=== PATIENT | male | born 1935 | race Caucasian/White ===

== ENCOUNTER 2018-02-11 13:31 | Observation (INO) ==
[2018-02-11] MEDS ORDERED: methylPREDNISolone 125 MG/2 ML VIAL IVP ONE (13:45)
[2018-02-11] MEDS ORDERED: Ipratropium/Albuterol Neb 3 ML IH ONE (13:45)
--- NOTE | 2018-02-11 14:00 | Emergency Department Note ---
Disposition Clinical Impression: Acute exacerbation of chronic obstructive airways disease Disposition: Admitted As Inpatient Forms: ED Satisfaction Letter Time of Disposition: 15:58 SOB HPI - General Chief Complaint: ED Shortness of Breath/Dyspnea Stated Complaint: TOM Cough Time Seen by Provider: 02/11/18 13:43 Source: patient, family Limitations: no limitations Nursing Notes Reviewed: Yes Vital Signs Reviewed: Yes - History of Present Illness Patient is an 82-year-old male who presents to [facility] ED with a chief complaint of difficulty breathing. States his symptoms have worsened over the last 2-3 days. He has a history of COPD. Does have albuterol nebulizers at home which she used up until yesterday evening. He then had somewhat trouble getting around he just sat around. Denies any nausea , vomiting, fever or chills. No chest pain, abdominal pain, problems with urination or bowel movements. Patient is a former smoker and quit approximately 14 years ago. Patient has a history of multiple stents and the heart as well as a pacemaker. Pt Subjective Complaint: shortness of breath Onset (ago): day(s) (3) Severity: moderate Consistency/Duration: gradually worsening Improves with: rest Worsens with: exertion Known history of: COPD Associated symptoms: Reports: cough, wheezing. Denies: chest pain, fever, nausea/vomiting, abdominal pain Treatment prior to arrival: none Cough present: Yes Cough Description: Involuntary Cough Frequency: Intermittent Sputum production: No - Related Data Allergies Allergy/AdvReac Type Severity Reaction Status Date / Time levofloxacin [From Levaquin] Allergy Hives Verified 02/11/18 14:13 pravastatin [From Pravachol] Allergy Hives Verified 02/11/18 14:13 All systems ED: reviewed and negative except as stated. Past Medical History - Past Medical History Attestation: Yes The following information was validated with the patient. Source: patient Medical history: Reports: CHF, COPD, dementia, hypertension Psychiatric history: Reports: no psych history - Social History Smoking Status: Former smoker Alcohol use: Reports: none Drug use: Reports: none Physical Exam - General Limitations: no limitations General appearance: alert - Head Head exam: atraumatic, normocephalic, normal inspection - Eye Eye exam: Present: normal appearance, EOMI - ENT ENT exam: normal exam, normal oropharynx, mucous membranes moist - Neck Neck exam: Present: normal inspection, full ROM, trachea midline - Chest Chest inspection: Present: normal inspection, symmetric chest wall rise - Respiratory Respiratory exam: Present: wheezes (diffuse) - Cardiovascular Cardiovascular exam: Present: regular rate, normal rhythm, normal heart sounds - Abdominal Exam Abdominal exam: Present: soft, Non-Tender. Absent: tenderness, distention, guarding, rebound, rigidity - Extremities Exam Extremities exam: Present: full ROM, pedal edema (2+). Absent: tenderness - Neurological Exam Neurological exam: Present: alert, oriented X3 - Psychiatric Psychiatric exam: Present: normal affect, normal mood - Skin Skin exam: Present: warm, dry, intact, normal color Course Course Narrative: Patient seen and examined. Difficulty breathing over the last several days. Upon examination, has diffuse wheezing bilaterally. Triple DuoNeb, Solu-Medrol ordered. Cardiopulmonary workup initiated. - Reevaluation(s) Reevaluation #1: Labwork shows elevated BNP greater than 400. Chest x-ray does not show signs of pulmonary edema. Upon reexamination, patient still has diffuse tight wheezes route his lungs with a respiratory rate of approximately 25 times per minute. We will admit for COPD exacerbation. I discussed with the hospitalist who has accepted patient for admission. Time: 15:57 Vital Signs Temperature 97.4 F L 02/11/18 13:37 Pulse Rate 81 02/11/18 13:37 Respiratory Rate 16 02/11/18 13:37 Blood Pressure 124/83 02/11/18 13:37 O2 Sat by Pulse Oximetry 93 02/11/18 13:37 Temperature 97.4 F L 02/11/18 13:37 Pulse Rate 80 02/11/18 16:15 Respiratory Rate 18 02/11/18 16:15 Blood Pressure 117/74 02/11/18 16:15 O2 Sat by Pulse Oximetry 97 02/11/18 16:15 Oxygen Delivery Oxygen Delivery Nasal Cannula Shortness of Breath/Dyspnea - Medical Records Medical records reviewed: Yes I reviewed the patient's medical records. - Lab Data Lab results reviewed: Yes I reviewed the patient's lab results. Result diagrams: 02/11/18 14:04 02/11/18 14:04 Lab Results 02/11/18 02/11/18 02/11/18 Range/Units 14:04 14:04 14:04 WBC 7.4 (4.3-11.1) K/mcL RBC 4.06 L (4.19-5.50) M/mcL Hgb 13.9 (12.9-16.9) g/dL Hct 41.3 (37.5-50.1) % MCV 101.7 H (83.0-100.0) fL MCH 34.2 H (28.0-33.3) pg MCHC 33.7 (31.6-35.5) g/dL RDW 13.6 (11.5-14.5) % Plt Count 115 L (140-400) K/mcL MPV 10.6 (9.4-12.4) fL Immature Gran % 0.4 (0-4) % Seg Neutrophils % 69.6 % Lymphocytes % 16.4 % Monocytes % 11.2 % Eosinophils % 1.7 % Basophils % 0.7 % Neutrophils # 5.2 (1.6-8.9) K/mcL Lymphocytes # 1.2 (0.6-4.6) K/mcL Monocytes # 0.8 (0.0-1.3) K/mcL Eosinophils # 0.1 (0.0-0.6) K/mcL Basophils # 0.1 (0.0-0.2) K/mcL Sodium 137 (136-145) mEq/L Potassium 4.2 (3.5-5.1) mEq/L Chloride 98 (98-107) mEq/L Carbon Dioxide 33 H (23-29) mEq/L BUN 27 H (8-23) mg/dL Creatinine 1.08 (0.70-1.30) mg/dL Est GFR ( Amer) > 60 (> 60) Est GFR (Non-Af Amer) > 60 (> 60) BUN/Creatinine Ratio 25 (6-26) Glucose 95 (70-105) mg/dL Calculated Osmolality 289 (280-300) Lactic Acid 1.4 (0.5-2.2) mmol/L Calcium 9.9 (8.6-10.3) mg/dL Troponin I < 0.03 (< 0.04) ng/mL B-Natriuretic Peptide (Less than 100) pg/mL 02/11/18 Range/Units 14:04 WBC (4.3-11.1) K/mcL RBC (4.19-5.50) M/mcL Hgb (12.9-16.9) g/dL Hct (37.5-50.1) % MCV (83.0-100.0) fL MCH (28.0-33.3) pg MCHC (31.6-35.5) g/dL RDW (11.5-14.5) % Plt Count (140-400) K/mcL MPV (9.4-12.4) fL Immature Gran % (0-4) % Seg Neutrophils % % Lymphocytes % % Monocytes % % Eosinophils % % Basophils % % Neutrophils # (1.6-8.9) K/mcL Lymphocytes # (0.6-4.6) K/mcL Monocytes # (0.0-1.3) K/mcL Eosinophils # (0.0-0.6) K/mcL Basophils # (0.0-0.2) K/mcL Sodium (136-145) mEq/L Potassium (3.5-5.1) mEq/L Chloride (98-107) mEq/L Carbon Dioxide (23-29) mEq/L BUN (8-23) mg/dL Creatinine (0.70-1.30) mg/dL Est GFR ( Amer) (> 60) Est GFR (Non-Af Amer) (> 60) BUN/Creatinine Ratio (6-26) Glucose (70-105) mg/dL Calculated Osmolality (280-300) Lactic Acid (0.5-2.2) mmol/L Calcium (8.6-10.3) mg/dL Troponin I (< 0.04) ng/mL B-Natriuretic Peptide 477 H (Less than 100) pg/mL - Radiology Data Radiology results reviewed: Yes I reviewed the patient's radiology results. Chest X-Ray 02/11/18 13:46 IMPRESSION: Low lung volume study without acute process. D/ / Carmela Gamez MD / Carmela Gamez MD Interpreting Provider: Carmela Gamez MD - EKG Data EKG attestation: Yes I reviewed and interpreted this EKG. EKG results narrative: EKG done at 1336 shows electronic ventricular paced rhythm with a rate of [address] elevation or depression. Inverted T waves in lead aVL and aVR. Attestation Statement - Attestation Attestation: I, Jabari Spence, examined this patient and my medical decision-making was reviewed with the INFORMATION CODER/PA/Advanced Practice Nurse/Resident Physician. I agree with the documented findings, disposition and treatment plan as described except to the extent set forth below. 82-year-old male presents emergency Department with concerns of increased difficulty in breathing. This is no worsening over the past 4-5 days. This similar to the previous COPD exacerbations per the daughter who is in the room. Patient is unable to give a good history regarding his case and presentation as he has a history of dementia. Patient had wheezing present on bilateral posterior lung emerson. He was given a breathing treatment emergency department daughter states he had woken up and was able to speak with her. Patient will be admitted to the hospitalist for further care and evaluation.
[2018-02-11 14:22] LABS: Basophils # 0.1 K/mcL (0.0-0.2); Basophils % 0.7 %; Eosinophils # 0.1 K/mcL (0.0-0.6); Eosinophils % 1.7 %; Hematocrit 41.3 % (37.5-50.1); Hemoglobin 13.9 g/dL (12.9-16.9); Immature Granulocytes % 0.4 % (0-4); Lymphocytes # 1.2 K/mcL (0.6-4.6); Lymphocytes % 16.4 %; Mean Corpuscular HGB Conc 33.7 g/dL (31.6-35.5); Mean Corpuscular Hemoglobin 34.2 pg (28.0-33.3); Mean Corpuscular Volume 101.7 fL (83.0-100.0); Mean Platelet Volume 10.6 fL (9.4-12.4); Monocytes # 0.8 K/mcL (0.0-1.3); Monocytes % 11.2 %; Neutrophils # 5.2 K/mcL (1.6-8.9); Platelet Count 115 K/mcL (140-400); Red Blood Count 4.06 M/mcL (4.19-5.50); Red Cell Distribution Width 13.6 % (11.5-14.5); Segmented Neutrophils % 69.6 %
[2018-02-11 14:34] LABS: Troponin I < 0.03 ng/mL (< 0.04)
[2018-02-11 14:43] LABS: BUN/Creatinine Ratio 25 (6-26); Blood Urea Nitrogen 27 mg/dL (8-23); Calcium 9.9 mg/dL (8.6-10.3); Carbon Dioxide 33 mEq/L (23-29); Chloride 98 mEq/L (98-107); Glucose 95 mg/dL (70-105); Osmolality,Calculated 289 (280-300); Potassium 4.2 mEq/L (3.5-5.1); Sodium 137 mEq/L (136-145); eGFR For African Americans > 60 (> 60); eGFR For Non-African Americans > 60 (> 60)
[2018-02-11] MEDS ORDERED: *HR* Promethazine 25 MG/ML VIAL IVP PRN (15:42)
[2018-02-11] MEDS ORDERED: Acetaminophen 325 MG TABLET PO PRN (15:42)
[2018-02-11] MEDS ORDERED: Naloxone 0.4 MG/ML INJ IVP PRN (15:42)
[2018-02-11] MEDS: Ipratropium/Albuterol Neb 3 ML IH SCH ×3 (16:23→23:05)
--- NOTE | 2018-02-11 17:39 | Internal Med History&Physical ---
Date of Encounter: 02/11/18 Time of Encounter: 16:40 Internal Medicine - H&P: HPI Chief complaint: Shortness of breath Admitted From: Emergency Dept Plans for Post Hospital Care: Home History of present illness: Mr. Mccodr is a 82 year old male with known PMH of Anxiety, Dementia, HTN, BPH, CHF, CAD and COPD, chronic hypoxic resp failure on 2 lit home O2 was brought into ER by family stating that he has been having worsening SOB, cough with greenish expectoration since last 2 days. He denied any CP. Denied any sick contacts at home. He does required 3 lit O2 now. He also have b/l LE edema , which seems to be chronic for him as per family. Past Med Surg Social Fam HX - Past Medical History Medical history: CHF, COPD, dementia, hypertension Psychiatric history: no psych history - Social History Smoking Status: Former smoker Alcohol use: none Drug use: none - Additional Family History Additional family history: Family hsitory reviewed and non contribuitory to current problem. Internal Medicine - H&P: Meds Albuterol Neb [Proventil Neb] 2.5 mg IH Q4HR PRN 02/11/18 [History] Aspirin [Lo-Dose Aspirin EC] 81 mg PO DAILY 02/11/18 [History] Cephalexin [Keflex] 500 mg PO TID 02/11/18 [History] Clopidogrel [Plavix] 75 mg PO DAILY 02/11/18 [History] Donepezil HCl [Aricept] 10 mg PO DAILY 02/11/18 [History] Fluticasone/Salmeterol [Advair 250-50 Diskus] 1 puff IH BID 02/11/18 [History] Furosemide [Lasix] 40 mg PO DAILY 02/11/18 [History] LORazepam [Ativan] 1 mg PO BID 02/11/18 [History] Metoprolol [Lopressor] 25 mg PO BID 02/11/18 [History] Nitroglycerin [Nitrostat] 0.4 mg SL Q5M PRN 02/11/18 [History] Ranitidine HCl [Acid Panel Machine Tender] 150 mg PO DAILY 02/11/18 [History] Tamsulosin HCl [Flomax] 0.4 mg PO DAILY 02/11/18 [History] Thiamine HCl [Vitamin B-1] 100 mg PO DAILY 02/11/18 [History] Tramadol HCl [Ultram] 50 mg PO QID PRN 02/11/18 [History] 3 Allergy/AdvReac Type Severity Reaction Status Date / Time levofloxacin [From Levaquin] Allergy Hives Verified 02/11/18 14:13 pravastatin [From Pravachol] Allergy Hives Verified 02/11/18 14:13 All Systems PM: A 10-system review of systems was performed and is negative for pertinent findings except as documented above in the HPI. Review of systems: All the systems are reviewed everything is benign except the systems and symptoms I mentioned in the history of present illness - Constitutional Vitals: Temp Pulse Resp BP Pulse Ox 98.2 F 90 15 130/76 93 02/11/18 17:25 02/11/18 17:25 02/11/18 17:25 02/11/18 17:25 02/11/18 17:25 General appearance: Present: A&O X 3, no acute distress, answers questions appropriately Exam: Looks weak and lethargic - Head Head exam: Present: atraumatic, normal inspection - Neck Neck exam general surgery: Present: supple - Respiratory Respiratory exam: Present: decreased breath sounds, rales, rhonchi, wheezes ( moderate to severe). Absent: respiratory distress - Cardiovascular Cardiovascular exam: Present: RRR, +S1, +S2. Absent: tachycardia - GI/Abdominal GI/Abdominal exam: Present: normal bowel sounds, soft. Absent: rebound, rigid, tenderness - Extremities Exam Extremities exam: Present: pedal edema (1-2+). Absent: calf tenderness, tenderness - Back Exam Back exam: Absent: CVA tenderness (L), CVA tenderness (R) - Neurological Exam Neurological exam: Present: alert, oriented X3 - Psychiatric Psychiatric exam: Present: depressed Internal Med - H&P Results - Labs CBC & Chem 7: 02/11/18 14:04 02/11/18 14:04 - Assessment and plan (1) Acute and chronic respiratory failure with hypoxia Current Visit: Yes Status: Acute Assessment and plan: Admit the pt into Tele Started him on Duoneb Q 4hr REESE Cont O2.. titrate O2 as he requires Cont high dose IV steroids Solumedrol 40mg Q6hr empirical abx Rocephin and Azithromycin (2) Acute bronchitis Current Visit: Yes Status: Acute Assessment and plan: Purulent bronchitis Reviewed CXr - no consolidations noticed will check Sputum cx, strep PNA, Legionella and Resp viral panel cont empirical abx Rocephin + Azithromycin Qualifiers: Qualified Code(s): J20.9 - Acute bronchitis, unspecified (3) Acute exacerbation of chronic obstructive airways disease Current Visit: Yes Status: Acute (4) CHF (congestive heart failure) Current Visit: Yes Status: Acute Assessment and plan: He might be in mild CHF exacerbation however he looks dehydrated / inta vascular volume depleted too so will hold on Lasix for now will get 2 D Echo resumed other home meds Qualifiers: Heart failure type: unspecified Heart failure chronicity: acute on chronic Qualified Code(s): I50.9 - Heart failure, unspecified (5) Bilateral leg edema Current Visit: Yes Status: Acute (6) Physical deconditioning Current Visit: Yes Status: Acute Assessment and plan: PT / OT eval in AM (7) HTN (hypertension) Current Visit: Yes Status: Acute Assessment and plan: resumed home meds Qualifiers: Hypertension type: essential hypertension Qualified Code(s): I10 - Essential (primary) hypertension - Time Spent With Patient Total time spent is greater than 50% in coordination of care (as documented) at patient's floor/unit and/or counseling patient:
[2018-02-11] MEDS ORDERED: Nitroglycerin 0.4 MG TAB.SUBL SL PRN (17:43)
[2018-02-11] MEDS: MethylPREDNISolone 40 MG/ML VIAL IVP SCH ×2 (18:16→23:06)
[2018-02-11] MEDS: Azithromycin 500 MG in D5% in Water 250 ML IVPB SCH (18:16)
[2018-02-11] MEDS: cefTRIAXone 1,000 MG in Water for inj. (sterile) 20 ML 10 ML IVP SCH (18:18)
[2018-02-11] MEDS: Budesonide/Formoterol 80/4.5 MDI IH SCH (19:36)
[2018-02-11 20:12] LABS: Adenovirus Not Detected (Not Detect); Bordetella Pertussis Not Detected (Not Detect); Chlamydophila pneumoniae Not Detected (Not Detect); Coronavirus 229E Not Detected (Not Detect); Coronavirus HKU1 Not Detected (Not Detect); Coronavirus NL63 Not Detected (Not Detect); Coronavirus OC43 Not Detected (Not Detect); Human Metapneumovirus Not Detected (Not Detect); Human Rhinovirus/Enterovirus ***DETECTED*** (Not Detect); Influenza A Subtype 2009 H1 Not Detected (Not Detect); Influenza A Untypeable Not Detected (Not Detect); Influenza B Not Detected (Not Detect); Mycoplasma pneumoniae Not Detected (Not Detect); Parainfluenza Virus 1 Not Detected (Not Detect); Parainfluenza Virus 2 Not Detected (Not Detect); Parainfluenza Virus 3 Not Detected (Not Detect); Parainfluenza Virus 4 Not Detected (Not Detect); Respiratory Syncytial Virus Not Detected (Not Detect)
[2018-02-12] MEDS: Ipratropium/Albuterol Neb 3 ML IH SCH ×5 (04:21→19:26)
[2018-02-12] MEDS: *HR* Enoxaparin 40 MG/0.4 ML SYRINGE SQ SCH (05:24)
[2018-02-12] MEDS: MethylPREDNISolone 40 MG/ML VIAL IVP SCH ×3 (05:24→17:19)
[2018-02-12 07:20] LABS: Hematocrit 36.4 % (37.5-50.1); Hemoglobin 12.5 g/dL (12.9-16.9); Immature Granulocytes % 0.3 % (0-4); Lymphocytes # 0.8 K/mcL (0.6-4.6); Lymphocytes % 13.9 %; Mean Corpuscular HGB Conc 34.3 g/dL (31.6-35.5); Mean Corpuscular Hemoglobin 33.8 pg (28.0-33.3); Mean Corpuscular Volume 98.4 fL (83.0-100.0); Mean Platelet Volume 10.5 fL (9.4-12.4); Monocytes # 0.3 K/mcL (0.0-1.3); Monocytes % 4.5 %; Neutrophils # 4.7 K/mcL (1.6-8.9); Platelet Count 108 K/mcL (140-400); Red Cell Distribution Width 13.5 % (11.5-14.5); Segmented Neutrophils % 81.3 %
[2018-02-12] MEDS: Budesonide/Formoterol 80/4.5 MDI IH SCH ×2 (07:37→19:26)
[2018-02-12 07:41] LABS: BUN/Creatinine Ratio 35 (6-26); Blood Urea Nitrogen 32 mg/dL (8-23); Calcium 9.4 mg/dL (8.6-10.3); Carbon Dioxide 33 mEq/L (23-29); Chloride 99 mEq/L (98-107); Glucose 145 mg/dL (70-105); Osmolality,Calculated 295 (280-300); Potassium 3.5 mEq/L (3.5-5.1); Sodium 138 mEq/L (136-145); eGFR For African Americans > 60 (> 60); eGFR For Non-African Americans > 60 (> 60)
[2018-02-12] MEDS: Thiamine (B-1) 100 MG TABLET PO SCH (08:03)
[2018-02-12] MEDS: Famotidine 20 MG TABLET PO SCH (08:03)
[2018-02-12] MEDS: cefTRIAXone 1,000 MG in Water for inj. (sterile) 20 ML 10 ML IVP SCH (08:03)
[2018-02-12] MEDS: Aspirin Enteric Coated 81 MG Tablet PO SCH (08:03)
[2018-02-12] MEDS ORDERED: Furosemide 40 MG TABLET PO SCH (09:00)
[2018-02-12] MEDS: Azithromycin 500 MG in D5% in Water 250 ML IVPB SCH (16:13)
--- NOTE | 2018-02-12 19:11 | Internal Med Progress Note ---
Date of Encounter: 02/12/18 Time of Encounter: 19:10 - Assessment and plan (1) Acute and chronic respiratory failure with hypoxia Current Visit: Yes Status: Acute Assessment and plan: Likely due to CHF. Echo abnormal. Will consult cardiology to see. Will continue with Lasix but switch to IV for now as pt is still on oxygen nasal canula. (2) Acute bronchitis Current Visit: Yes Status: Acute Assessment and plan: On Zithromax Qualifiers: Qualified Code(s): J20.9 - Acute bronchitis, unspecified (3) Bilateral leg edema Current Visit: Yes Status: Acute Assessment and plan: will recheck in am. (4) CHF (congestive heart failure) Current Visit: Yes Status: Acute Assessment and plan: Will give trail of Lasix IV for now and consult cardiology. Qualifiers: Heart failure type: unspecified Heart failure chronicity: acute on chronic Qualified Code(s): I50.9 - Heart failure, unspecified (5) HTN (hypertension) Current Visit: Yes Status: Acute Assessment and plan: On Lopressor. Qualifiers: Hypertension type: essential hypertension Qualified Code(s): I10 - Essential (primary) hypertension - Time Spent With Patient Total time spent is greater than 50% in coordination of care (as documented) at patient's floor/unit and/or counseling patient: - Subjective Interval history: Pt denies ever smoking. Denies being on home oxygen. Pt's echo was reportedly abnormal. Cardiology will be consulted to see. - Constitutional Vitals: Temp Pulse Resp BP Pulse Ox 97.9 F 80 18 122/75 94 02/12/18 15:25 02/12/18 15:25 02/12/18 15:44 02/12/18 15:25 02/12/18 15:44 General appearance: Present: A&O X 3, no acute distress, answers questions appropriately - Head Head exam: Present: atraumatic, normocephalic - Eye Eye exam: Present: PERRL, conjuntiva pink, sclera anicteric Pupils: Present: PERRL - Neck Neck exam general surgery: Present: supple, trachea midline. Absent: lymphadenopathy - Respiratory Respiratory exam: Present: decreased breath sounds, CTAB. Absent: accessory muscle use, rales, rhonchi, wheezes - Cardiovascular Cardiovascular exam: Present: RRR, +S1, +S2. Absent: diastolic murmur, gallop, rubs, systolic murmur - GI/Abdominal GI/Abdominal exam: Present: normal bowel sounds, soft, no peritoneal signs. Absent: distended, tenderness - Extremities Exam Extremities exam: Present: warm, radial pulses palpable and symmetrical. Absent : calf tenderness, cyanotic, pedal edema - Neurological Exam Neurological exam: Present: CN II-XII intact, oriented X3, no focal deficits. Absent: pronater drift, facial droop, speech deficit - Skin Skin exam: Present: dry, intact Internal Medicine: Result - Labs CBC & Chem 7: 02/12/18 05:55 02/12/18 05:55 Labs: Short CBC 02/12/18 Range/Units 05:55 WBC 5.7 (4.3-11.1) K/mcL Hgb 12.5 L (12.9-16.9) g/dL Hct 36.4 L (37.5-50.1) % Plt Count 108 L (140-400) K/mcL Neutrophils # 4.7 (1.6-8.9) K/mcL BMP 02/12/18 05:55 Sodium 138 Potassium 3.5 Chloride 99 Carbon Dioxide 33 H BUN 32 H Creatinine 0.91 Glucose 145 H Calcium 9.4 - Impressions Impressions Echocardiogram 02/12/18 17:48 Impressions: LVEF 40%. Mild to moderate LV systolic dysfunction. Indeterminate diastolic function. Mild concentric left ventricular hypertrophy. Normal right ventricular structure and function. Severe bi-atrial enlargement. Mild-moderate mitral regurgitation. Densely calcified aortic valve leaflets with low gradient severe aortic stenosis. Moderate, eccentric aortic regurgitation may be underestimated. Mild-moderate tricuspid regurgitation. Mild-moderate pulmonic regurgitation. Moderate pulmonary hypertension. A device lead was visualized in the right atrium and right ventricle. No prior echo for comparison. Ordering provider notified. Left Ventricular Wall Motion: Rest Echo Findings The apex, apical inferior, mid inferior, basal inferior, apical anterior, mid anterior, basal anterior, apical septal, mid inferior septal, basal inferior septal, apical lateral, mid anterior lateral, basal anterior lateral, mid anterior septal, mid inferior lateral, basal anterior septal and basal inferior lateral lopez were hypokinetic. Findings: Study Quality * Technically adequate exam. ECG Findings * Paced rhythm. Left Ventricle * LVEF 40%. * Indeterminate diastolic function. * Mild concentric left ventricular hypertrophy. Right Ventricle * Normal right ventricular structure and function. Left Atrium * Severely dilated left atrium. Right Atrium * Severely dilated right atrium. Mitral Valve * No mitral stenosis. * Mildly thickened mitral valve leaflets. * Mild-moderate mitral regurgitation. Aortic Valve * Aortic valve leaflet morphology not well visualized. * Densely calcified aortic valve leaflets. * Moderate, eccentric aortic regurgitation may be underestimated. * Severe aortic stenosis. PV 3.8m/s, MG 33 mmHg, DI 0.13, ADOLFO 0.56 cm2. Reduced SVI 25mL/m2 Tricuspid Valve * Normal tricuspid valve structure. * Mild-moderate tricuspid regurgitation. * Estimated RA pressure is 20 mmHg. * Estimated RVSP is 52 mmHg. * Moderate pulmonary hypertension. Pulmonic Valve * No pulmonic stenosis. * Normal pulmonic valve structure. * Mild-moderate pulmonic regurgitation. Pulmonary Artery * Normal visualized portions of the main pulmonary artery. Aorta * Not well visualized. Pericardium * There is no pericardial effusion present. Device lead * A device lead was visualized in the right atrium and right ventricle. Interatrial Septum * No evidence of PFO by color Doppler. IVC * The IVC is dilated. * < 50% respiratory change. - Diagnostic Studies Other Images Additional comments: echo 02/12/2018 Impressions: LVEF 40%. Mild to moderate LV systolic dysfunction. Indeterminate diastolic function. Mild concentric left ventricular hypertrophy. Normal right ventricular structure and function. Severe bi-atrial enlargement. Mild-moderate mitral regurgitation. Densely calcified aortic valve leaflets with low gradient severe aortic stenosis. Moderate, eccentric aortic regurgitation may be underestimated. Mild-moderate tricuspid regurgitation. Mild-moderate pulmonic regurgitation. Moderate pulmonary hypertension. A device lead was visualized in the right atrium and right ventricle. No prior echo for comparison. Ordering provider notified. Consult Discharge Plan - Plan Referrals: Lito Loving DO [Primary Care Provider] -
[2018-02-12] MEDS ORDERED: Furosemide 40 MG/4 ML VIAL IVP SCH (19:30)
[2018-02-12] MEDS: *HR* LORazepam 1 MG TABLET PO PRN (22:17)
[2018-02-13] MEDS: Ipratropium/Albuterol Neb 3 ML IH SCH ×6 (00:13→20:01)
[2018-02-13] MEDS: MethylPREDNISolone 40 MG/ML VIAL IVP SCH ×5 (00:14→23:36)
[2018-02-13] MEDS ORDERED: *HR* LORazepam 1 MG TABLET PO ONE (01:58)
[2018-02-13] MEDS: *HR* Enoxaparin 40 MG/0.4 ML SYRINGE SQ SCH (06:12)
--- NOTE | 2018-02-13 08:30 | Electrocardiograph Report ---
[place] [employer] Test Date: 2018-02-11 Pat Name: Asa Mccord Department: 103 Room: 3B45 Gender: M Hand Etcher: ANNMARIE : 1935 Requested By: Tanja Tilley Order Number: [id number] Reading MD: Alonso Holman Measurements Intervals [place] Rate: 79 P: DC: 0 QRS: 265 QRSD: 197 T: 81 QT: 428 QTc: 462 Interpretive Statements ELECTRONIC VENTRICULAR PACEMAKER ABNORMAL RHYTHM ECG INTERPRETATION BASED ON A DEFAULT AGE OF 40 YEARS Electronically Signed On 02-13-2018 8:28:47 EDT by Alonso Holman
[2018-02-13] MEDS: cefTRIAXone 1,000 MG in Water for inj. (sterile) 20 ML 10 ML IVP SCH (09:29)
[2018-02-13] MEDS: Aspirin Enteric Coated 81 MG Tablet PO SCH (09:30)
[2018-02-13] MEDS: Thiamine (B-1) 100 MG TABLET PO SCH (09:30)
[2018-02-13] MEDS: *HR* HYDROcodone/Acet 5/325 mg TABLET PO PRN (09:30)
[2018-02-13] MEDS: Famotidine 20 MG TABLET PO SCH (09:30)
[2018-02-13] MEDS: Furosemide 40 MG TABLET PO SCH (09:30)
--- NOTE | 2018-02-13 10:31 | Internal Med Progress Note ---
Date of Encounter: 02/13/18 Time of Encounter: 10:30 - Assessment and plan (1) Severe aortic stenosis Current Visit: Yes Status: Acute Assessment and plan: Per cardiology TTE demonstrates evidence of a cardiomyopathy, LVEF 40%. Echo also showing evidence of severe aortic stenosis. These findings may certainly be contributing to patient's symptoms of shortness of breath. Results discussed with the pt. Cardiology believes he may be a candidate for TAVR. Cardiology attempted to reach pt's but was unable to reach her. Neighbor who was at [facility] this am states pt's was admitted to a hospital in [place]. Cardiology recommends continue medical therapy for now, including aspirin, beta apple. Add statin, low-dose BILLY inhibitor therapy. (2) Acute bronchitis Current Visit: Yes Status: Acute Qualifiers: Qualified Code(s): J20.9 - Acute bronchitis, unspecified (3) Bilateral leg edema Current Visit: Yes Status: Acute (4) HTN (hypertension) Current Visit: Yes Status: Acute Qualifiers: Hypertension type: essential hypertension Qualified Code(s): I10 - Essential (primary) hypertension (5) Cardiomyopathy Current Visit: Yes Status: Acute Assessment and plan: Pt will continue home dose diuretic but with close monitoring due to underlying severe aortic stenosis. Statin and low dose BILLY inhibitor added by cardiology . Qualifiers: Cardiomyopathy type: unspecified Qualified Code(s): I42.9 - Cardiomyopathy , unspecified - Time Spent With Patient Total time spent is greater than 50% in coordination of care (as documented) at patient's floor/unit and/or counseling patient: less than 15 minutes - Subjective Interval history: Pt admits to using home oxygen at 21/2 L NC. Pt's echo was reportedly abnormal. Cardiology will be consulted to see. - Constitutional Vitals: Temp Pulse Resp BP Pulse Ox 97.7 F 79 16 153/87 92 02/13/18 07:18 02/13/18 07:18 02/13/18 07:18 02/13/18 07:18 02/13/18 09:15 General appearance: Present: A&O X 3, no acute distress, answers questions appropriately Exam: thin - Head Head exam: Present: atraumatic, normocephalic - Eye Eye exam: Present: PERRL, conjuntiva pink, sclera anicteric Pupils: Present: PERRL - Neck Neck exam general surgery: Present: supple, trachea midline. Absent: lymphadenopathy - Respiratory Respiratory exam: Present: CTAB. Absent: accessory muscle use, rales, rhonchi, wheezes - Cardiovascular Cardiovascular exam: Present: RRR, +S1, +S2. Absent: diastolic murmur, gallop, rubs, systolic murmur Additional comments: distant heart sounds - GI/Abdominal GI/Abdominal exam: Present: normal bowel sounds, soft, no peritoneal signs. Absent: distended, tenderness - Extremities Exam Extremities exam: Present: warm, radial pulses palpable and symmetrical. Absent : calf tenderness, cyanotic, pedal edema - Neurological Exam Neurological exam: Present: CN II-XII intact, oriented X3, no focal deficits. Absent: pronater drift, facial droop, speech deficit - Skin Skin exam: Present: dry, intact Internal Medicine: Result - Labs CBC & Chem 7: 02/12/18 05:55 02/12/18 05:55 - Impressions Impressions Echocardiogram 02/12/18 17:48 Impressions: LVEF 40%. Mild to moderate LV systolic dysfunction. Indeterminate diastolic function. Mild concentric left ventricular hypertrophy. Normal right ventricular structure and function. Severe bi-atrial enlargement. Mild-moderate mitral regurgitation. Densely calcified aortic valve leaflets with low gradient severe aortic stenosis. Moderate, eccentric aortic regurgitation may be underestimated. Mild-moderate tricuspid regurgitation. Mild-moderate pulmonic regurgitation. Moderate pulmonary hypertension. A device lead was visualized in the right atrium and right ventricle. No prior echo for comparison. Ordering provider notified. Left Ventricular Wall Motion: Rest Echo Findings The apex, apical inferior, mid inferior, basal inferior, apical anterior, mid anterior, basal anterior, apical septal, mid inferior septal, basal inferior septal, apical lateral, mid anterior lateral, basal anterior lateral, mid anterior septal, mid inferior lateral, basal anterior septal and basal inferior lateral lopez were hypokinetic. Findings: Study Quality * Technically adequate exam. ECG Findings * Paced rhythm. Left Ventricle * LVEF 40%. * Indeterminate diastolic function. * Mild concentric left ventricular hypertrophy. Right Ventricle * Normal right ventricular structure and function. Left Atrium * Severely dilated left atrium. Right Atrium * Severely dilated right atrium. Mitral Valve * No mitral stenosis. * Mildly thickened mitral valve leaflets. * Mild-moderate mitral regurgitation. Aortic Valve * Aortic valve leaflet morphology not well visualized. * Densely calcified aortic valve leaflets. * Moderate, eccentric aortic regurgitation may be underestimated. * Severe aortic stenosis. PV 3.8m/s, MG 33 mmHg, DI 0.13, ADOLFO 0.56 cm2. Reduced SVI 25mL/m2 Tricuspid Valve * Normal tricuspid valve structure. * Mild-moderate tricuspid regurgitation. * Estimated RA pressure is 20 mmHg. * Estimated RVSP is 52 mmHg. * Moderate pulmonary hypertension. Pulmonic Valve * No pulmonic stenosis. * Normal pulmonic valve structure. * Mild-moderate pulmonic regurgitation. Pulmonary Artery * Normal visualized portions of the main pulmonary artery. Aorta * Not well visualized. Pericardium * There is no pericardial effusion present. Device lead * A device lead was visualized in the right atrium and right ventricle. Interatrial Septum * No evidence of PFO by color Doppler. IVC * The IVC is dilated. * < 50% respiratory change. Consult Discharge Plan - Plan Referrals: Lito Loving DO [Primary Care Provider] -
[2018-02-13] MEDS: Budesonide/Formoterol 80/4.5 MDI IH SCH ×2 (11:24→20:01)
--- NOTE | 2018-02-13 12:52 | Cardiology Consult Note ---
Date of Encounter: 02/13/18 Time of Encounter: 12:49 Assessment and Plan (1) Cardiomyopathy Current Visit: Yes Status: Acute Patient presented with a primary complaint of cough, sputum production. He has a history of supplemental oxygen-dependent lung disease. TTE demonstrates evidence of a cardiomyopathy, LVEF 40%. At this time, it remains unclear if this is ischemic or nonischemic in nature. Patient also has echocardiographic evidence of severe aortic stenosis. These findings could certainly be contributing to patient's symptoms of shortness of breath. I explained the findings to the patient. In addition to medical therapy, I recommended a diagnostic cardiac catheterization to further evaluate. I explained to him that severe, symptomatic aortic stenosis often requires intervention such as valve replacement. We discussed surgical and transcatheter approaches. I believe that he would be a candidate for TAVR. However, patient declines further testing/intervention at this time. He states that he will follow-up as an outpatient. Patient is somewhat of a poor historian, so I attempted to contact his only listed emergency contact, his . Unfortunately, I was not able to reach her. Recommend continue medical therapy for now, including aspirin, beta apple. Add statin, low-dose BILLY inhibitor therapy. Patient states he will follow up with our cardiology department as an outpatient. I explained the risks of his decision to decline further testing at this time, including worsening cardiac condition and potential cardiac cause of . He understands. Qualifiers: Cardiomyopathy type: unspecified Qualified Code(s): I42.9 - Cardiomyopathy , unspecified (2) Severe aortic stenosis Current Visit: Yes Status: Acute Discussion w patient/family: The assessment and plan as outlined above was discussed with the patient and/or family members who expressed understanding and agreement. All questions were answered. Thank you for involving us in the care of your patient. Please call with any questions. History of Present Illness Consult date: 02/13/18 Requesting physician: Sue Blanchard Consult reason: Abnormal echocardiogram Chief complaint: Shortness of breath History of present illness: Mr. Mccord is a 82 year old male with a reported history of essential HTN, CAD, COPD on supplemental O2. Presented with a primary complaint of shortness of breath, cough, greenish sputum production. Rotavirus detected VF serology. TTE performed, which demonstrated an LVEF of 40%. Aortic valve described is densely calcified with evidence of severe aortic stenosis. Peak velocity 4.10 m /s, mean gradient 37 mmHg. Upon my evaluation, patient seemed to be asymptomatic. He describes recent dyspnea, but denies specific chest pain. He does state that he has a history of a pacemaker, but denies prior myocardial infarction, reduced EF. Of note, patient is somewhat of a poor historian. I attempted to contact (emergency contact listed) without success. No other contacts listed. Past Med Surg Social Fam HX - Past Medical History Medical history: CHF, COPD, dementia, hypertension Additional medical history: bradycardia Psychiatric history: no psych history - Past Surgical History Surgical History: orthopedic, other Additional surgical history: AAA mesh one year ago - Social History Smoking Status: Former smoker Smokeless Tobacco Status: No Alcohol use: none Drug use: none Medications and Allergies Albuterol Neb [Proventil Neb] 2.5 mg IH Q4HR PRN 02/11/18 [History] Aspirin [Lo-Dose Aspirin EC] 81 mg PO DAILY 02/11/18 [History] Cephalexin [Keflex] 500 mg PO TID 02/11/18 [History] Clopidogrel [Plavix] 75 mg PO DAILY 02/11/18 [History] Donepezil HCl [Aricept] 10 mg PO DAILY 02/11/18 [History] Fluticasone/Salmeterol [Advair 250-50 Diskus] 1 puff IH BID 02/11/18 [History] Furosemide [Lasix] 40 mg PO DAILY 02/11/18 [History] LORazepam [Ativan] 1 mg PO BID 02/11/18 [History] Metoprolol [Lopressor] 25 mg PO BID 02/11/18 [History] Nitroglycerin [Nitrostat] 0.4 mg SL Q5M PRN 02/11/18 [History] Ranitidine HCl [Acid Friend [address]] 150 mg PO DAILY 02/11/18 [History] Tamsulosin HCl [Flomax] 0.4 mg PO DAILY 02/11/18 [History] Thiamine HCl [Vitamin B-1] 100 mg PO DAILY 02/11/18 [History] Tramadol HCl [Ultram] 50 mg PO QID PRN 02/11/18 [History] 3 Allergy/AdvReac Type Severity Reaction Status Date / Time levofloxacin [From Levaquin] Allergy Hives Verified 02/11/18 14:13 pravastatin [From Pravachol] Allergy Hives Verified 02/11/18 14:13 All Systems Review: The remainder of the systems were reviewed and are negative - Cardiovascular Cardiovascular: as per HPI, dyspnea on exertion - Respiratory Respiratory: cough Physical Examination Vital Signs, Last 4 Hours Temp Pulse Resp BP Pulse Ox 02/13/18 11:24 16 91 02/13/18 11:21 97.6 F 80 16 144/85 93 02/13/18 09:15 92 General: Conversant, No Apparent Distress HEENT: Atraumatic, Normocephaly, Mucus Membranes Moist Neck: No JVD, Normal carotid pulses Cardiac: Other (Distant heart sounds. Difficult to appreciate murmurs.) Lungs: Other (Shallow, but appeared to be clear.) Neuro: No focal deficits noted, Other (Patient alert and responsive, but seems to be a poor historian.) Abdomen: Soft Skin: No rashes noted on visualized skin Musculoskeletal: No Chest Wall Tenderness Extremities: No Clubbing, No Cyanosis, No Edema Results 02/12/18 05:55 02/12/18 05:55 - Imaging and Cardiology Echo: report reviewed Consult Discharge Plan - Plan Referrals: Lito Loving DO [Primary Care Provider] -
[2018-02-13] MEDS: Azithromycin 500 MG in D5% in Water 250 ML IVPB SCH (16:07)
[2018-02-13] MEDS: *HR* LORazepam 1 MG TABLET PO PRN (20:39)
[2018-02-14] MEDS: Ipratropium/Albuterol Neb 3 ML IH SCH ×7 (01:01→23:12)
[2018-02-14] MEDS: Famotidine 20 MG TABLET PO SCH (06:13)
[2018-02-14] MEDS: MethylPREDNISolone 40 MG/ML VIAL IVP SCH (06:14)
[2018-02-14] MEDS: *HR* Enoxaparin 40 MG/0.4 ML SYRINGE SQ SCH (06:14)
[2018-02-14] MEDS: Budesonide/Formoterol 80/4.5 MDI IH SCH ×2 (07:39→19:59)
[2018-02-14] MEDS: Thiamine (B-1) 100 MG TABLET PO SCH (08:38)
[2018-02-14] MEDS: cefTRIAXone 1,000 MG in Water for inj. (sterile) 20 ML 10 ML IVP SCH (08:39)
[2018-02-14] MEDS: Aspirin Enteric Coated 81 MG Tablet PO SCH (08:39)
[2018-02-14] MEDS: Furosemide 40 MG TABLET PO SCH (08:39)
--- NOTE | 2018-02-14 10:51 | Internal Med Progress Note ---
Date of Encounter: 02/14/18 Time of Encounter: 10:50 - Assessment and plan (1) Severe aortic stenosis Current Visit: Yes Status: Acute Assessment and plan: Patient presented with complaint of cough, shortness of breath He is on supplemental oxygen for lung disease Severe aortic stenosis identified on TTE, further, getting patient's condition Cardiology has seen the patient in consultation-recommended diagnostic cardiac cath for further evaluation Discussed TAVR procedure. Patient contemplating diagnostic LHC and TAVR procedure. At this point in time does not wish to have another procedure, would like to assess further with his family Continue medical therapy, aspirin, Plavix, lisinopril, Lopressor and statin TTE 02/12/18 LVEF 40%. Mild to moderate LV systolic dysfunction. Indeterminate diastolic function. Mild concentric left ventricular hypertrophy. Normal right ventricular structure and function. Severe bi-atrial enlargement. Mild-moderate mitral regurgitation. Densely calcified aortic valve leaflets with low gradient severe aortic stenosis. Moderate, eccentric aortic regurgitation may be underestimated. Mild-moderate tricuspid regurgitation. Mild-moderate pulmonic regurgitation. Moderate pulmonary hypertension. A device lead was visualized in the right atrium and right ventricle. No prior echo for comparison. Ordering provider notified. (2) Cardiomyopathy Current Visit: Yes Status: Acute Assessment and plan: See above Qualifiers: Cardiomyopathy type: unspecified Qualified Code(s): I42.9 - Cardiomyopathy , unspecified (3) Acute bronchitis Current Visit: Yes Status: Acute Assessment and plan: Continues to have cough, sputum production decreasing RIP positive for Entero/Rhino, viral bronchitis sputum cultures positive for Pseudomonas aerginosa Legionella and S.Pneumo negative Afebrile and on baseline O2 now Continue respiratory support with nasal cannula, titrate when necessary to maintain SPO2 greater than 92% Patient on IV steroids, changed to oral steroids today and continue to monitor Continue bronchodilators Monitor labs daily Qualifiers: Qualified Code(s): J20.9 - Acute bronchitis, unspecified (4) CHF (congestive heart failure) Current Visit: Yes Status: Acute Assessment and plan: H/O CHF, does not appear to be volume overloaded Had BLE edema yesterday; PO lasix restarted, edema improving monitor renal function, stable today Qualifiers: Heart failure type: unspecified Heart failure chronicity: acute on chronic Qualified Code(s): I50.9 - Heart failure, unspecified (5) Bilateral leg edema Current Visit: Yes Status: Acute Assessment and plan: Improving, does not appear to have fluid overload. Continue to monitor (6) Physical deconditioning Current Visit: Yes Status: Acute Assessment and plan: Physical deconditioning, continue to have bilateral lower extremity weakness and balance issues PT/OT has seen the patient and recommends SNF placement Continue with physical therapy while inpatient Plan is to discharge to [facility] (7) HTN (hypertension) Current Visit: Yes Status: Acute Assessment and plan: resume home anti-HTN medications, BP stable Qualifiers: Hypertension type: essential hypertension Qualified Code(s): I10 - Essential (primary) hypertension - Time Spent With Patient Total time spent is greater than 50% in coordination of care (as documented) at patient's floor/unit and/or counseling patient: 25 - 35 minutes - Subjective Interval history: No acute changes overnight - Constitutional Vitals: Temp Pulse Resp BP Pulse Ox 97.8 F 60 20 129/85 93 02/14/18 07:39 02/14/18 07:39 02/14/18 07:39 02/14/18 07:39 02/14/18 07:39 General appearance: Present: A&O X 3, no acute distress, answers questions appropriately - Head Head exam: Present: atraumatic, normocephalic - Eye Eye exam: Present: PERRL, conjuntiva pink, sclera anicteric Pupils: Present: PERRL - Neck Neck exam general surgery: Present: supple, trachea midline. Absent: lymphadenopathy - Respiratory Respiratory exam: Present: decreased breath sounds, CTAB. Absent: accessory muscle use, rales, respiratory distress, rhonchi, wheezes, tachypnea - Cardiovascular Cardiovascular exam: Present: RRR, +S1, +S2. Absent: diastolic murmur, gallop, rubs, systolic murmur - GI/Abdominal GI/Abdominal exam: Present: normal bowel sounds, soft, no peritoneal signs. Absent: distended, tenderness - Extremities Exam Extremities exam: Present: warm, radial pulses palpable and symmetrical. Absent : calf tenderness, cyanotic, pedal edema - Neurological Exam Neurological exam: Present: CN II-XII intact, oriented X3, no focal deficits. Absent: pronater drift, facial droop, speech deficit - Skin Skin exam: Present: dry, intact Internal Medicine: Result - Labs CBC & Chem 7: 02/14/18 10:59 02/14/18 10:59 Consult Discharge Plan - Plan Referrals: Lito Loving DO [Primary Care Provider] -
[2018-02-14 11:13] LABS: Basophils % 0.1 %; Hematocrit 43.5 % (37.5-50.1); Lymphocytes # 1.3 K/mcL (0.6-4.6); Lymphocytes % 9.8 %; Mean Corpuscular Hemoglobin 33.4 pg (28.0-33.3); Mean Corpuscular Volume 98.2 fL (83.0-100.0); Mean Platelet Volume 10.1 fL (9.4-12.4); Monocytes # 0.6 K/mcL (0.0-1.3); Monocytes % 4.5 %; Platelet Count 149 K/mcL (140-400); Red Blood Count 4.43 M/mcL (4.19-5.50); Red Cell Distribution Width 13.3 % (11.5-14.5); Segmented Neutrophils % 84.6 %
[2018-02-14 11:23] LABS: Hemoglobin 14.8 g/dL (12.9-16.9)
[2018-02-14 11:41] LABS: BUN/Creatinine Ratio 35 (6-26); Blood Urea Nitrogen 34 mg/dL (8-23); Calcium 9.9 mg/dL (8.6-10.3); Carbon Dioxide 38 mEq/L (23-29); Chloride 96 mEq/L (98-107); Glucose 124 mg/dL (70-105); Osmolality,Calculated 303 (280-300); Potassium 3.5 mEq/L (3.5-5.1); Sodium 142 mEq/L (136-145); eGFR For African Americans > 60 (> 60); eGFR For Non-African Americans > 60 (> 60)
[2018-02-14] MEDS: Levofloxacin 750 MG/150 ML 750 MG/150 ML BAG IVPB SCH (11:59)
--- NOTE | 2018-02-14 13:35 | Event Note ---
Date of Encounter: 02/14/18 Time of Encounter: 13:33 - Cardiology Event Note Discussed and reviewed with patient TTE findings. Educated on cardiomyopathy, severe . Educated patient on risks of no further cardiac intervention. Patient states understanding, however continues to decline while inpatient. Patient's is s/p CABG at [place] and per patient has sustained some complications. Patient states he does not want any intervention until things are settled with his . Patient agreeable to see cardiology as outpatient. Follow up set.
[2018-02-14] MEDS: *HR* LORazepam 1 MG TABLET PO PRN (15:58)
[2018-02-14] MEDS: Ondansetron 4 MG/2 ML VIAL IVP PRN ×2 (15:58→23:29)
[2018-02-14] MEDS: *HR* HYDROcodone/Acet 5/325 mg TABLET PO PRN (23:29)
[2018-02-15] MEDS: Ipratropium/Albuterol Neb 3 ML IH SCH ×6 (04:03→23:45)
[2018-02-15 05:24] LABS: Basophils % 0.1 %; Hematocrit 38.9 % (37.5-50.1); Immature Granulocytes % 0.6 % (0-4); Lymphocytes # 1.6 K/mcL (0.6-4.6); Lymphocytes % 15.1 %; Mean Corpuscular HGB Conc 33.2 g/dL (31.6-35.5); Mean Corpuscular Volume 99.5 fL (83.0-100.0); Mean Platelet Volume 10.4 fL (9.4-12.4); Platelet Count 123 K/mcL (140-400); Red Blood Count 3.91 M/mcL (4.19-5.50); Red Cell Distribution Width 13.5 % (11.5-14.5); Segmented Neutrophils % 75.2 %
[2018-02-15 05:26] LABS: Hemoglobin 12.9 g/dL (12.9-16.9)
[2018-02-15 05:42] LABS: BUN/Creatinine Ratio 42 (6-26); Blood Urea Nitrogen 45 mg/dL (8-23); Calcium 9.1 mg/dL (8.6-10.3); Carbon Dioxide 38 mEq/L (23-29); Chloride 98 mEq/L (98-107); Glucose 99 mg/dL (70-105); Osmolality,Calculated 304 (280-300); Potassium 3.5 mEq/L (3.5-5.1); Sodium 141 mEq/L (136-145); eGFR For African Americans > 60 (> 60); eGFR For Non-African Americans > 60 (> 60)
[2018-02-15] MEDS: *HR* Enoxaparin 40 MG/0.4 ML SYRINGE SQ SCH (06:01)
[2018-02-15] MEDS: Levofloxacin 750 MG/150 ML 750 MG/150 ML BAG IVPB SCH (10:00)
[2018-02-15] MEDS: Thiamine (B-1) 100 MG TABLET PO SCH (10:01)
[2018-02-15] MEDS: predniSONE 20 MG TABLET PO SCH (10:01)
[2018-02-15] MEDS: Aspirin Enteric Coated 81 MG Tablet PO SCH (10:02)
[2018-02-15] MEDS: Famotidine 20 MG TABLET PO SCH (10:02)
[2018-02-15] MEDS: Furosemide 40 MG TABLET PO SCH (10:02)
[2018-02-15] MEDS: Budesonide/Formoterol 80/4.5 MDI IH SCH ×2 (11:33→19:52)
--- NOTE | 2018-02-15 13:25 | Internal Med Progress Note ---
Date of Encounter: 02/15/18 Time of Encounter: 13:24 - Assessment and plan (1) Severe aortic stenosis Current Visit: Yes Status: Acute Assessment and plan: Patient presented with complaint of cough, shortness of breath He is on supplemental oxygen for lung disease Severe aortic stenosis identified on TTE, further, getting patient's condition Cardiology has seen the patient in consultation-recommended diagnostic cardiac cath for further evaluation Discussed TAVR procedure. Patient contemplating diagnostic LHC and TAVR procedure. At this point in time does not wish to have another procedure, would like to assess further with his family With the patient's permission I discussed the patient's case with his daughter today The daughter and son are supposed to meet with care team on Saturday for further discussion regarding possible LHC and TAVR Continue medical therapy, aspirin, Plavix, lisinopril, Lopressor and statin TTE 02/12/18 LVEF 40%. Mild to moderate LV systolic dysfunction. Indeterminate diastolic function. Mild concentric left ventricular hypertrophy. Normal right ventricular structure and function. Severe bi-atrial enlargement. Mild-moderate mitral regurgitation. Densely calcified aortic valve leaflets with low gradient severe aortic stenosis. Moderate, eccentric aortic regurgitation may be underestimated. Mild-moderate tricuspid regurgitation. Mild-moderate pulmonic regurgitation. Moderate pulmonary hypertension. A device lead was visualized in the right atrium and right ventricle. No prior echo for comparison. Ordering provider notified. (2) Cardiomyopathy Current Visit: Yes Status: Acute Assessment and plan: See above Qualifiers: Cardiomyopathy type: unspecified Qualified Code(s): I42.9 - Cardiomyopathy , unspecified (3) Acute bronchitis Current Visit: Yes Status: Acute Assessment and plan: Continues to have cough, sputum production decreasing RIP positive for Entero/Rhino, viral bronchitis sputum cultures positive for Pseudomonas aerginosa Patient was on Rocephin and Zithromax but was switched to Levaquin Has been improving from a respiratory perspective, now on RA, afebrile and hemodynamically stable Legionella and S.Pneumo negative Continue respiratory support with nasal cannula, titrate when necessary to maintain SPO2 greater than 92% Patient on IV steroids, changed to oral steroids today and continue to monitor Continue bronchodilators Monitor labs daily Qualifiers: Bronchitis organism: rhinovirus Qualified Code(s): J20.6 - Acute bronchitis due to rhinovirus (4) CHF (congestive heart failure) Current Visit: Yes Status: Acute Assessment and plan: H/O CHF, patient does not appear to be volume overloaded Continue Lasix Weight daily Qualifiers: Heart failure type: unspecified Heart failure chronicity: acute on chronic Qualified Code(s): I50.9 - Heart failure, unspecified (5) Bilateral leg edema Current Visit: Yes Status: Acute Assessment and plan: BLE edema has improved, continue to monitor (6) Physical deconditioning Current Visit: Yes Status: Acute Assessment and plan: Physical deconditioning, continue to have bilateral lower extremity weakness and balance issues D/W daughter regarding continuing functional decline Per daughter, and patient's family "I feel it is not safe for by father to return home, there is not enough people there to help him" Family feels patient would benefit from SNF placement PT/OT has seen the patient and recommends SNF placement; PT/OT continuing to follow over the weekend to help improve functional capacity Plan is to discharge to [facility] for physical and occupational therapy (7) HTN (hypertension) Current Visit: Yes Status: Acute Assessment and plan: Continue anti-HTN medications, BP stable Qualifiers: Hypertension type: essential hypertension Qualified Code(s): I10 - Essential (primary) hypertension - Time Spent With Patient Total time spent is greater than 50% in coordination of care (as documented) at patient's floor/unit and/or counseling patient: 25 - 35 minutes - Subjective Interval history: No acute changes overnight - Constitutional Vitals: Temp Pulse Resp BP Pulse Ox 97.8 F 79 18 119/73 94 02/15/18 12:24 02/15/18 12:24 02/15/18 12:24 02/15/18 12:24 02/15/18 12:24 General appearance: Present: A&O X 2, no acute distress, answers questions appropriately - Head Head exam: Present: atraumatic, normocephalic - Eye Eye exam: Present: PERRL, conjuntiva pink, sclera anicteric Pupils: Present: PERRL - Neck Neck exam general surgery: Present: supple, trachea midline. Absent: lymphadenopathy - Respiratory Respiratory exam: Present: CTAB. Absent: accessory muscle use, rales, rhonchi, wheezes - Cardiovascular Cardiovascular exam: Present: RRR, +S1, +S2. Absent: diastolic murmur, gallop, rubs, systolic murmur - GI/Abdominal GI/Abdominal exam: Present: normal bowel sounds, soft, no peritoneal signs. Absent: distended, tenderness - Extremities Exam Extremities exam: Present: warm, radial pulses palpable and symmetrical. Absent : calf tenderness, cyanotic, pedal edema - Neurological Exam Neurological exam: Present: CN II-XII intact, oriented X3, no focal deficits. Absent: pronater drift, facial droop, speech deficit - Skin Skin exam: Present: dry, intact Internal Medicine: Result - Labs CBC & Chem 7: 02/15/18 04:49 02/15/18 04:49 Labs: Short CBC 02/15/18 Range/Units 04:49 WBC 10.6 (4.3-11.1) K/mcL Hgb 12.9 D (12.9-16.9) g/dL Hct 38.9 (37.5-50.1) % Plt Count 123 L (140-400) K/mcL Neutrophils # 8.0 (1.6-8.9) K/mcL BMP 02/15/18 04:49 Sodium 141 Potassium 3.5 Chloride 98 Carbon Dioxide 38 H BUN 45 H Creatinine 1.06 Glucose 99 Calcium 9.1 Consult Discharge Plan - Plan Referrals: Lito Loving DO [Primary Care Provider] -
[2018-02-16] MEDS: Ipratropium/Albuterol Neb 3 ML IH SCH ×6 (04:09→23:13)
[2018-02-16] MEDS: *HR* HYDROcodone/Acet 5/325 mg TABLET PO PRN (06:26)
[2018-02-16] MEDS: Famotidine 20 MG TABLET PO SCH (06:26)
[2018-02-16 06:57] LABS: Basophils % 0.1 %; Hematocrit 37.8 % (37.5-50.1); Immature Granulocytes % 0.4 % (0-4); Lymphocytes # 1.4 K/mcL (0.6-4.6); Lymphocytes % 13.4 %; Mean Corpuscular HGB Conc 34.4 g/dL (31.6-35.5); Mean Corpuscular Hemoglobin 34.2 pg (28.0-33.3); Mean Corpuscular Volume 99.5 fL (83.0-100.0); Mean Platelet Volume 10.5 fL (9.4-12.4); Monocytes # 0.9 K/mcL (0.0-1.3); Monocytes % 9.4 %; Neutrophils # 7.7 K/mcL (1.6-8.9); Platelet Count 123 K/mcL (140-400); Red Cell Distribution Width 13.2 % (11.5-14.5); Segmented Neutrophils % 76.7 %
[2018-02-16] MEDS: *HR* Enoxaparin 40 MG/0.4 ML SYRINGE SQ SCH (07:18)
[2018-02-16 07:21] LABS: BUN/Creatinine Ratio 39 (6-26); Blood Urea Nitrogen 38 mg/dL (8-23); Calcium 9.1 mg/dL (8.6-10.3); Carbon Dioxide 39 mEq/L (23-29); Chloride 96 mEq/L (98-107); Glucose 107 mg/dL (70-105); Osmolality,Calculated 300 (280-300); Potassium 3.4 mEq/L (3.5-5.1); Sodium 140 mEq/L (136-145); eGFR For African Americans > 60 (> 60); eGFR For Non-African Americans > 60 (> 60)
[2018-02-16] MEDS: Budesonide/Formoterol 80/4.5 MDI IH SCH ×2 (07:47→19:57)
--- NOTE | 2018-02-16 07:57 | Internal Med Progress Note ---
Date of Encounter: 02/16/18 Time of Encounter: 07:54 - Assessment and plan (1) Severe aortic stenosis Current Visit: Yes Status: Acute Assessment and plan: Patient presented with complaint of cough, shortness of breath, found to have acute bronchitis, rhinovirus and pseudomonas in sputum Diagnostic imaging negative for acute pulmonary process He is on supplemental oxygen for lung disease, requiring 3 L nasal cannula at home Found to have Severe aortic stenosis identified on TTE, further complicpatient' s condition Cardiology has seen the patient in consultation-recommended diagnostic cardiac cath for further evaluation Discussed TAVR procedure. Patient contemplating diagnostic LHC and TAVR procedure; would need to be completed at [facility] At this point in time does not wish to have another procedure, would like to discuss further with his family; Family meeting on Saturday Continue medical therapy, aspirin, Plavix, lisinopril, Lopressor and statin (2) Cardiomyopathy Current Visit: Yes Status: Acute Assessment and plan: See above TTE 02/12/18 LVEF 40%. Mild to moderate LV systolic dysfunction. Indeterminate diastolic function. Mild concentric left ventricular hypertrophy. Normal right ventricular structure and function. Severe bi-atrial enlargement. Mild-moderate mitral regurgitation. Densely calcified aortic valve leaflets with low gradient severe aortic stenosis. Moderate, eccentric aortic regurgitation may be underestimated. Mild-moderate tricuspid regurgitation. Mild-moderate pulmonic regurgitation. Moderate pulmonary hypertension. A device lead was visualized in the right atrium and right ventricle. No prior echo for comparison. Ordering provider notified. Qualifiers: Cardiomyopathy type: unspecified Qualified Code(s): I42.9 - Cardiomyopathy , unspecified (3) Acute bronchitis Current Visit: Yes Status: Acute Assessment and plan: Continues to have cough, sputum production decreasing RIP positive for Entero/Rhino, viral bronchitis sputum cultures positive for Pseudomonas aerginosa Has been improving from a respiratory perspective, on 3 L simple mask overnight , able to tolerate room air yesterday, titrate back to room air, afebrile and hemodynamically stable Patient wears chronic oxygen Legionella and S.Pneumo negative Continue respiratory support with nasal cannula, titrate when necessary to maintain SPO2 greater than 92% Continue oral steroids today and continue to monitor Continue bronchodilators Monitor labs daily Qualifiers: Bronchitis organism: rhinovirus Qualified Code(s): J20.6 - Acute bronchitis due to rhinovirus (4) CHF (congestive heart failure) Current Visit: Yes Status: Acute Assessment and plan: H/O CHF, patient does not appear to be volume overloaded Lungs clear/diminished AP and L Continue Lasix Weight daily; weight stable BLE edema improving Qualifiers: Heart failure type: unspecified Heart failure chronicity: acute on chronic Qualified Code(s): I50.9 - Heart failure, unspecified (5) Bilateral leg edema Current Visit: Yes Status: Acute Assessment and plan: BLE edema continuing to improve, continue to monitor (6) Physical deconditioning Current Visit: Yes Status: Acute Assessment and plan: Physical deconditioning, continue to have bilateral lower extremity weakness and balance issues D/W daughter regarding continuing functional decline Per daughter, and patient's family "I feel it is not safe for by father to return home, there is not enough people there to help him" Family feels patient would benefit from SNF placement PT/OT has seen the patient and recommends SNF placement; continue with PT and OT Plan is to discharge to [facility] for physical and occupational therapy on Saturday Family meeting on Saturday (7) HTN (hypertension) Current Visit: Yes Status: Acute Assessment and plan: Continue anti-HTN medications, BP stable Qualifiers: Hypertension type: essential hypertension Qualified Code(s): I10 - Essential (primary) hypertension - Time Spent With Patient Total time spent is greater than 50% in coordination of care (as documented) at patient's floor/unit and/or counseling patient: 25 - 35 minutes - Subjective Interval history: No acute changes overnight, reporting breathing is improving. Also, reporting that he still feels weak - Constitutional Vitals: Temp Pulse Resp BP Pulse Ox 97.5 F L 80 18 125/74 97 02/16/18 07:30 02/16/18 07:30 02/16/18 07:30 02/16/18 07:30 02/16/18 07:30 General appearance: Present: A&O X 2, no acute distress, answers questions appropriately - Head Head exam: Present: atraumatic, normocephalic - Eye Eye exam: Present: PERRL, conjuntiva pink, sclera anicteric Pupils: Present: PERRL - Neck Neck exam general surgery: Present: supple, trachea midline. Absent: lymphadenopathy - Respiratory Respiratory exam: Present: decreased breath sounds, CTAB. Absent: accessory muscle use, prolonged expiratory phase, rales, respiratory distress, rhonchi, wheezes, tachypnea - Cardiovascular Cardiovascular exam: Present: RRR, +S1, +S2. Absent: diastolic murmur, gallop, rubs, systolic murmur - GI/Abdominal GI/Abdominal exam: Present: normal bowel sounds, soft, no peritoneal signs. Absent: distended, tenderness - Extremities Exam Extremities exam: Present: warm, radial pulses palpable and symmetrical. Absent : calf tenderness, cyanotic, pedal edema - Neurological Exam Neurological exam: Present: CN II-XII intact, oriented X3, no focal deficits. Absent: pronater drift, facial droop, speech deficit - Psychiatric Psychiatric exam: Present: agitated - Skin Skin exam: Present: dry, intact Internal Medicine: Result - Labs CBC & Chem 7: 02/16/18 06:09 02/16/18 06:09 Labs: Short CBC 02/16/18 Range/Units 06:09 WBC 10.1 (4.3-11.1) K/mcL Hgb 13.0 (12.9-16.9) g/dL Hct 37.8 (37.5-50.1) % Plt Count 123 L (140-400) K/mcL Neutrophils # 7.7 (1.6-8.9) K/mcL BMP 02/16/18 06:09 Sodium 140 Potassium 3.4 L Chloride 96 L Carbon Dioxide 39 H BUN 38 H Creatinine 0.97 Glucose 107 H Calcium 9.1 Consult Discharge Plan - Plan Referrals: Lito Loving DO [Primary Care Provider] -
[2018-02-16] MEDS: Thiamine (B-1) 100 MG TABLET PO SCH (08:45)
[2018-02-16] MEDS: Aspirin Enteric Coated 81 MG Tablet PO SCH (08:45)
[2018-02-16] MEDS: Furosemide 40 MG TABLET PO SCH (08:45)
[2018-02-16] MEDS: predniSONE 20 MG TABLET PO SCH (08:45)
[2018-02-16] MEDS: Levofloxacin 750 MG/150 ML 750 MG/150 ML BAG IVPB SCH (08:46)
[2018-02-16] MEDS ORDERED: 0.9 % Sodium Chloride 500 ML IVC ONE (19:10)
[2018-02-17] MEDS: *HR* HYDROcodone/Acet 5/325 mg TABLET PO PRN (02:23)
[2018-02-17] MEDS: Ipratropium/Albuterol Neb 3 ML IH SCH ×6 (03:42→23:29)
[2018-02-17] MEDS: *HR* Enoxaparin 40 MG/0.4 ML SYRINGE SQ SCH (06:24)
[2018-02-17] MEDS: Budesonide/Formoterol 80/4.5 MDI IH SCH ×2 (07:43→20:10)
[2018-02-17 08:08] LABS: Eosinophils % 0.1 %; Hematocrit 36.8 % (37.5-50.1); Hemoglobin 12.7 g/dL (12.9-16.9); Immature Granulocytes % 0.8 % (0-4); Lymphocytes # 1.6 K/mcL (0.6-4.6); Lymphocytes % 13.3 %; Mean Corpuscular HGB Conc 34.5 g/dL (31.6-35.5); Mean Corpuscular Volume 98.7 fL (83.0-100.0); Mean Platelet Volume 10.4 fL (9.4-12.4); Monocytes # 1.1 K/mcL (0.0-1.3); Monocytes % 9.1 %; Neutrophils # 9.1 K/mcL (1.6-8.9); Nucleated Red Blood Cells 0.2 /100 WBC (0); Platelet Count 125 K/mcL (140-400); Red Blood Count 3.73 M/mcL (4.19-5.50); Red Cell Distribution Width 13.2 % (11.5-14.5); Segmented Neutrophils % 76.7 %
[2018-02-17 08:26] LABS: BUN/Creatinine Ratio 39 (6-26); Blood Urea Nitrogen 37 mg/dL (8-23); Calcium 9.1 mg/dL (8.6-10.3); Carbon Dioxide 37 mEq/L (23-29); Chloride 96 mEq/L (98-107); Glucose 83 mg/dL (70-105); Osmolality,Calculated 298 (280-300); Potassium 3.3 mEq/L (3.5-5.1); Sodium 140 mEq/L (136-145); eGFR For African Americans > 60 (> 60); eGFR For Non-African Americans > 60 (> 60)
--- NOTE | 2018-02-17 08:31 | Internal Med Progress Note ---
Date of Encounter: 02/17/18 Time of Encounter: 17:00 - Assessment and plan (1) Severe aortic stenosis Current Visit: Yes Status: Acute Assessment and plan: He is on supplemental oxygen for lung disease, requiring 3 L nasal cannula at home Found to have Severe aortic stenosis identified on TTE, further complicates patient's condition Cardiology has seen the patient in consultation-recommended diagnostic cardiac cath for further evaluation Discussed TAVR procedure. Patient contemplating diagnostic LHC and TAVR procedure; would need to be completed at [facility] At this point in time does not wish to have another procedure, would like to discuss further with his family; Family meeting on Saturday Continue medical therapy, aspirin, Plavix, lisinopril, Lopressor and statin (2) Cardiomyopathy Current Visit: Yes Status: Acute Assessment and plan: See above TTE 02/12/18 LVEF 40%. Mild to moderate LV systolic dysfunction. Indeterminate diastolic function. Mild concentric left ventricular hypertrophy. Normal right ventricular structure and function. Severe bi-atrial enlargement. Mild-moderate mitral regurgitation. Densely calcified aortic valve leaflets with low gradient severe aortic stenosis. Moderate, eccentric aortic regurgitation may be underestimated. Mild-moderate tricuspid regurgitation. Mild-moderate pulmonic regurgitation. Moderate pulmonary hypertension. A device lead was visualized in the right atrium and right ventricle. No prior echo for comparison. Ordering provider notified. Qualifiers: Cardiomyopathy type: unspecified Qualified Code(s): I42.9 - Cardiomyopathy , unspecified (3) Acute bronchitis Current Visit: Yes Status: Acute Assessment and plan: Continues to have cough, sputum production decreasing RIP positive for Entero/Rhino, viral bronchitis sputum cultures were positive for Pseudomonas aerginosa; treated with 7 days of IV ABX. ABX discontinued yesterday Continuing to improve from a respiratory perspective, on 3 L NC this morning, tolerating well, does not appear to be in respiratory distress, afebrile and hemodynamically stable Patient wears chronic oxygen 3L at home Legionella and S.Pneumo negative Continue oral steroids at discharge Continue bronchodilators Qualifiers: Bronchitis organism: rhinovirus Qualified Code(s): J20.6 - Acute bronchitis due to rhinovirus (4) CHF (congestive heart failure) Current Visit: Yes Status: Acute Assessment and plan: History of CHF, not in acute exacerbation, BLE swelling resolved Qualifiers: Heart failure type: unspecified Heart failure chronicity: unspecified Qualified Code(s): I50.9 - Heart failure, unspecified (5) Physical deconditioning Current Visit: Yes Status: Acute Assessment and plan: Physical deconditioning, continue to have bilateral lower extremity weakness and balance issues D/W daughter regarding continuing functional decline Per daughter, and patient's family "I feel it is not safe for by father to return home, there is not enough people there to help him" Family feels patient would benefit from SNF placement PT/OT has seen the patient and recommends SNF placement; continue with PT and OT ; no loss of balance with use of roller walker, assist 1 Benefit from PT and OT at discharge Family meeting on Saturday - Time Spent With Patient Total time spent is greater than 50% in coordination of care (as documented) at patient's floor/unit and/or counseling patient: 25 - 35 minutes - Subjective Interval history: No acute changes overnight, denying shortness of breath. Continued to report he feels weak and off balance - Constitutional Vitals: Temp Pulse Resp BP Pulse Ox 97.7 F 81 18 115/74 95 02/17/18 07:08 02/17/18 07:08 02/17/18 07:43 02/17/18 07:08 02/17/18 07:43 General appearance: Present: A&O X 2, no acute distress, answers questions appropriately - Head Head exam: Present: atraumatic, normocephalic - Eye Eye exam: Present: PERRL, conjuntiva pink, sclera anicteric Pupils: Present: PERRL - Neck Neck exam general surgery: Present: supple, trachea midline. Absent: lymphadenopathy - Respiratory Respiratory exam: Present: decreased breath sounds, CTAB, prolonged expiratory phase. Absent: accessory muscle use, rales, respiratory distress, rhonchi, wheezes, tachypnea - Cardiovascular Cardiovascular exam: Present: RRR, +S1, +S2. Absent: diastolic murmur, gallop, rubs, systolic murmur - GI/Abdominal GI/Abdominal exam: Present: normal bowel sounds, soft, no peritoneal signs. Absent: distended, tenderness - Extremities Exam Extremities exam: Present: warm, radial pulses palpable and symmetrical. Absent : calf tenderness, cyanotic, pedal edema - Neurological Exam Neurological exam: Present: CN II-XII intact, oriented X3, no focal deficits. Absent: pronater drift, facial droop, speech deficit - Skin Skin exam: Present: dry, intact Internal Medicine: Result - Labs CBC & Chem 7: 02/17/18 06:42 02/17/18 06:42 Labs: Short CBC 02/17/18 Range/Units 06:42 WBC 11.8 H (4.3-11.1) K/mcL Hgb 12.7 L (12.9-16.9) g/dL Hct 36.8 L (37.5-50.1) % Plt Count 125 L (140-400) K/mcL Neutrophils # 9.1 H (1.6-8.9) K/mcL BMP 02/17/18 06:42 Sodium 140 Potassium 3.3 L Chloride 96 L Carbon Dioxide 37 H BUN 37 H Creatinine 0.94 Glucose 83 Calcium 9.1 Consult Discharge Plan - Plan Referrals: Lito Loving DO [Primary Care Provider] -
[2018-02-17] MEDS: predniSONE 20 MG TABLET PO SCH (10:20)
[2018-02-17] MEDS: Famotidine 20 MG TABLET PO SCH (10:20)
[2018-02-17] MEDS: Furosemide 40 MG TABLET PO SCH (10:21)
[2018-02-17] MEDS: Aspirin Enteric Coated 81 MG Tablet PO SCH (10:21)
[2018-02-17] MEDS: Thiamine (B-1) 100 MG TABLET PO SCH (10:21)
[2018-02-17] MEDS ORDERED: 0.9 % Sodium Chloride 1,000 ML ONE (12:06)
[2018-02-17] MEDS ORDERED: Naloxone 0.4 MG/ML INJ IVP PRN (12:15)
[2018-02-18] MEDS: *HR* HYDROcodone/Acet 5/325 mg TABLET PO PRN (03:34)
[2018-02-18] MEDS: Ipratropium/Albuterol Neb 3 ML IH SCH ×3 (03:49→11:09)
[2018-02-18] MEDS: *HR* Enoxaparin 40 MG/0.4 ML SYRINGE SQ SCH (03:56)
[2018-02-18] MEDS: Budesonide/Formoterol 80/4.5 MDI IH SCH (07:28)
[2018-02-18 08:30] LABS: Basophils % 0.1 %; Hematocrit 34.8 % (37.5-50.1); Hemoglobin 12.1 g/dL (12.9-16.9); Immature Granulocytes % 0.4 % (0-4); Lymphocytes # 1.2 K/mcL (0.6-4.6); Lymphocytes % 12.1 %; Mean Corpuscular HGB Conc 34.8 g/dL (31.6-35.5); Mean Corpuscular Hemoglobin 33.9 pg (28.0-33.3); Mean Corpuscular Volume 97.5 fL (83.0-100.0); Mean Platelet Volume 10.9 fL (9.4-12.4); Monocytes # 0.8 K/mcL (0.0-1.3); Monocytes % 7.8 %; Neutrophils # 7.6 K/mcL (1.6-8.9); Platelet Count 133 K/mcL (140-400); Red Blood Count 3.57 M/mcL (4.19-5.50); Red Cell Distribution Width 13.2 % (11.5-14.5); Segmented Neutrophils % 79.6 %
[2018-02-18 08:45] LABS: BUN/Creatinine Ratio 45 (6-26); Blood Urea Nitrogen 51 mg/dL (8-23); Carbon Dioxide 34 mEq/L (23-29); Chloride 98 mEq/L (98-107); Glucose 117 mg/dL (70-105); Osmolality,Calculated 307 (280-300); Potassium 3.4 mEq/L (3.5-5.1); Sodium 141 mEq/L (136-145); eGFR For African Americans > 60 (> 60); eGFR For Non-African Americans > 60 (> 60)
[2018-02-18] MEDS: Famotidine 20 MG TABLET PO SCH (09:08)
[2018-02-18] MEDS: predniSONE 20 MG TABLET PO SCH (09:08)
[2018-02-18] MEDS: Thiamine (B-1) 100 MG TABLET PO SCH (09:09)
[2018-02-18] MEDS: Aspirin Enteric Coated 81 MG Tablet PO SCH (09:09)
[2018-02-18 11:39] VITALS: BP 100/64
--- NOTE | 2018-02-18 12:04 | Discharge Summary ---
Orders not resulted at time of discharge: Pending orders 02/19/18 04:00 Basic Metabolic Panel AM 0400 Complete Blood Count [HEME] AM 0400 Date of Encounter: 02/18/18 Time of Encounter: 09:50 - Discharge Diagnosis (1) Acute bronchitis Priority: Primary Status: Acute Assessment and Plan: Pt with cough, denies sputum production with cough. Respiratory infectious panel positive for Entero and Rhino virus Sputum cultuer positive for pseudomonas aerginosa, treated with IV antibiotics, finished course 02/16. Pt remains on 3-4 liter 02 via n/c, is back to normal baseline 02 demand. Continue prednisone and nebulizer treatments after discharge, 02 to maintain sats > 92%. Qualifiers: Bronchitis organism: unspecified organism Qualified Code(s): J20.9 - Acute bronchitis, unspecified (2) Cardiomyopathy Priority: Secondary Status: Chronic Assessment and Plan: Chronic. LVE 40%, mild to moderate LV systolic dysfunction, mild concentric LV hypertrophy, severe biatrial enlargement, mild-moderate MR. Densely calcified aortic valve leaflets with low gradient severe aortic stenosis , moderate AR, mild-moderate TR, mild-moderate IL. Patient has been evaluated by cardiology, these findings could certainly be contributing to patient's symptoms of shortness of breath. Patient declines any further testing including surgical and transcatheter approaches, no TVR. Patient wants to follow up outpatient. Cardiology recommends adding a statin, however patient has it listed as an allergy, as low-dose ACEI. Qualifiers: Cardiomyopathy type: unspecified Qualified Code(s): I42.9 - Cardiomyopathy , unspecified (3) Severe aortic stenosis Priority: Secondary Status: Chronic (4) CHF (congestive heart failure) Priority: Secondary Status: Chronic Assessment and Plan: No acute exacerbation. Patient is euvolemic. Patient with history of chronic systolic heart failure. Qualifiers: Heart failure type: systolic Heart failure chronicity: unspecified Qualified Code(s): I50.20 - Unspecified systolic (congestive) heart failure (5) Physical deconditioning Priority: Secondary Status: Chronic Assessment and Plan: Continue PT/OT at ECF after discharge. (6) Acute on chronic respiratory failure with hypoxemia Priority: Secondary Status: Resolved Assessment and Plan: Pt has returned to baseline oxygen demand of 3 L. (7) Hypotension Priority: Secondary Status: Acute Assessment and Plan: Resovled. Continue to monitor. ACEI held, can restart at ECF. Qualifiers: Hypotension type: unspecified hypotension type Qualified Code(s): I95.9 - Hypotension, unspecified Hospital course: Mr. Mccord is a 82 year old male Discharge discussed with: patient, family - Time Spent with Patient Total time spent providing and/or coordinating discharge services: Less than 30 minutes - Discharge Medications Prescriptions: predniSONE [PredniSONE] 10 mg PO DAILY #31 tablet Home Medications: Albuterol Neb [Proventil Neb] 2.5 mg IH Q4HR PRN 02/11/18 [History] Aspirin [Lo-Dose Aspirin EC] 81 mg PO DAILY 02/11/18 [History] Clopidogrel [Plavix] 75 mg PO DAILY 02/11/18 [History] Donepezil HCl [Aricept] 10 mg PO DAILY 02/11/18 [History] Fluticasone/Salmeterol [Advair 250-50 Diskus] 1 puff IH BID 02/11/18 [History] Furosemide [Lasix] 40 mg PO DAILY 02/11/18 [History] LORazepam [Ativan] 1 mg PO BID 02/11/18 [History] Metoprolol [Lopressor] 25 mg PO BID 02/11/18 [History] Nitroglycerin [Nitrostat] 0.4 mg SL Q5M PRN 02/11/18 [History] Ranitidine HCl [Acid Cargo Broker] 150 mg PO DAILY 02/11/18 [History] Tamsulosin HCl [Flomax] 0.4 mg PO DAILY 02/11/18 [History] Thiamine HCl [Vitamin B-1] 100 mg PO DAILY 02/11/18 [History] Ipratropium/Albuterol Neb [Duoneb] 3 ml IH [id number] inhsol 02/18/18 [Rx] predniSONE [PredniSONE] 10 mg PO DAILY #31 tablet 02/18/18 [Rx] Allergies/Adverse Reactions: 3 Allergy/AdvReac Type Severity Reaction Status Date / Time levofloxacin [From Levaquin] Allergy Hives Verified 02/11/18 14:13 pravastatin [From Pravachol] Allergy Hives Verified 02/11/18 14:13 Date of admission: 02/11/18 16:28 Primary care physician: Lito Loving, Consults: 02/12/18 08:38 Consult to Burning Plant Operator [CONS] Routine Reason for SW Consult: referral to Stefan started by Nora in ER 02/12/18 08:40 Consult to Nurse Navigator [CONS] Routine Comment: CHF Consult to Occupational Therapy [CONS] Routine Comment: Evaluate, develop and implement POC Reason for Consult: placement to SNF Does patient have active BEDREST order?: No Is patient medically & hemodynamically stable?: Yes Consult to Physical Therapy [CONS] Routine Comment: Evaluate, develop and implement POC Reason for Consult: placement to SNF Does patient have active BEDREST order?: No Is patient medically & hemodynamically stable?: Yes 02/12/18 19:10 Consult to Cardiology [CONS] Routine Comment: Consulting Provider: Cardiology Amy Reason for Consult: CHF and abnormal Echo results Call Completed: No Discharging clinician: Catherine Andrade Anticipated date of discharge: 02/18/18 - Constitutional Vitals: Temp Pulse Resp BP Pulse Ox 97.7 F 81 15 100/64 97 02/18/18 11:33 02/18/18 11:33 02/18/18 11:33 02/18/18 11:33 02/18/18 11:33 General appearance: Present: cooperative, A&O X 2, pleasant, no acute distress, answers questions appropriately - Head Head exam: Present: atraumatic, normal inspection, normocephalic - Eye Eye exam: Present: normal appearance, conjuntiva pink, sclera anicteric - Neck Neck exam general surgery: Present: supple, trachea midline. Absent: lymphadenopathy, tenderness - Respiratory Respiratory exam: Present: decreased breath sounds, CTAB. Absent: accessory muscle use, chest wall tenderness, rales, respiratory distress, rhonchi, wheezes - Cardiovascular Cardiovascular exam: Present: RRR, +S1, +S2. Absent: diastolic murmur, gallop, rubs, systolic murmur - GI/Abdominal GI/Abdominal exam: Present: distended, normal bowel sounds, soft. Absent: hepatomegaly, tenderness - Extremities Exam Extremities exam: Present: normal capillary refill, normal inspection, warm, radial pulses palpable and symmetrical. Absent: calf tenderness, cyanotic, pedal edema, tenderness - Neurological Exam Neurological exam: Present: alert, altered, no focal deficits. Absent: oriented X3, facial droop, speech deficit - Skin Skin exam: Present: dry, intact, normal color, warm. Absent: rash - Patient Status Disposition: Transfer SNF Condition: Good Functional capacity at discharge: uses cane/walker Overall status at discharge: patient is progressing back to baseline - Discharge Instructions Follow Up With: Lito Loving DO [Primary Care Provider] - - Diet and Activity Activity: as per physical therapy Diet: advance to your usual diet
== END 2018-02-18 14:56 ==
LOC: EMEROO 13:31 → 3BNU 13:31
PROVIDERS: ADMIT Family Medicine; ATTEND Family Medicine